=== PATIENT | female | born 1965 | race Caucasian/White ===

== ENCOUNTER 2017-06-04 12:15 | Inpatient (IN) | payer SELFPAY ==
[2017-06-04 13:17] LABS: BILIRUBIN,URINE NEGATIVE (NEG); CLARITY,URINE CLEAR; GLUCOSE,URINE NEGATIVE (NEG); NITRITE,URINE NEGATIVE (NEG); PROTEIN,URINE NEGATIVE (NEG-TRACE); UROBILINOGEN,URINE 0.2 mg/dL (0.2 mg/dL)
[2017-06-04] MEDS: ONDANSETRON PF 4 MG/2 ML VIAL. IV ×2 (13:17→13:51)
[2017-06-04] MEDS: MORPHINE SULFATE 10 MG/ML VIAL. IV (13:17)
[2017-06-04 13:22] LABS: ADD MAN DIFF? NO
[2017-06-04 13:26] LABS: BASO # 0.1 x10^3/uL (0.0-0.2); BASO % 1 % (0-3); EOS # 0.1 x10^3/uL (0.0-0.7); EOS % 1 % (0-3); HEMATOCRIT 39.1 % (36.0-47.0); HEMOGLOBIN 13.2 g/dL (12.0-15.5); LYMPH # 1.5 x10^3/uL (1.0-4.8); LYMPH % 16 % (24-48); MEAN CORPUSCULAR HEMOGLOBIN 32 pg (25-35); MEAN CORPUSCULAR HGB CONC 34 g/dL (31-37); MEAN CORPUSCULAR VOLUME 95 fL (79-100); MONO # 0.4 x10^3/uL (0.0-1.1); MONO % 5 % (0-9); NEUT # 6.8 x10^3uL (1.8-7.7); NEUT % 77 % (31-73); PLATELET COUNT 290 x10^3/uL (140-400); RED BLOOD COUNT 4.12 x10^6/uL (3.50-5.40); RED CELL DISTRIBUTION WIDTH 14.3 % (11.5-14.5); WHITE BLOOD COUNT 8.9 x10^3/uL (4.0-11.0)
[2017-06-04 13:39] LABS: ANION GAP 12 (6-14); BLOOD UREA NITROGEN 17 mg/dL (7-20); BUN/CREATININE RATIO 21 (6-20); CALCIUM 9.1 mg/dL (8.5-10.1); CARBON DIOXIDE 25 mmol/L (21-32); CHLORIDE 109 mmol/L (98-107); CREATININE 0.8 mg/dL (0.6-1.0); GFR 76.2; GLUCOSE 84 mg/dL (70-99); POTASSIUM 3.9 mmol/L (3.5-5.1); SODIUM 146 mmol/L (136-145)
[2017-06-04 13:48] LABS: COLOR,URINE STRAW
[2017-06-04 13:50] LABS: BACTERIA,URINE FEW /HPF (0-FEW); RBC,URINE 0 /HPF (0-2); SQUAMOUS EPITHELIAL CELL,UR FEW /LPF; WBC,URINE 0 /HPF (0-4)
[2017-06-04 13:53] LABS: ALBUMIN/GLOBULIN RATIO 1.1 (1.0-1.7); ALK PHOS 77 U/L (46-116); ALT (SGPT) 25 U/L (14-59); AST (SGOT) 19 U/L (15-37); LIPASE 167 U/L (73-393); TOTAL BILIRUBIN 0.4 mg/dL (0.2-1.0); TOTAL PROTEIN 7.6 g/dL (6.4-8.2)
[2017-06-04] MEDS: MORPHINE SULFATE 4 MG/ML DISP.SYRIN. IV ×4 (13:54→22:40)
[2017-06-04] MEDS: KETOROLAC 30 MG/ML INJ. IV ×2 (14:56→20:26)
[2017-06-04] MEDS: PROMETHAZINE IM 25 MG/ML VIAL IM (14:58)
[2017-06-04] MEDS: ONDANSETRON ODT 4 MG TAB.RAPDIS. PO (18:11)
[2017-06-04] MEDS ORDERED: NICOTINE 14MG PATCH. TD (20:00)
[2017-06-04] MEDS: VANCOMYCIN 125 MG/2.5 ML ORAL SOLUTION. PO (20:26)
[2017-06-04] MEDS: ACETAMINOPHEN 325 MG TABLET. PO (20:26)
[2017-06-04] MEDS: SIMETHICONE 80 MG TAB.CHEW PO (22:45)
[2017-06-05] MEDS: MORPHINE SULFATE 4 MG/ML DISP.SYRIN. IV ×7 (01:01→15:43)
[2017-06-05] MEDS: ONDANSETRON ODT 4 MG TAB.RAPDIS. PO (03:13)
[2017-06-05] MEDS: ACETAMINOPHEN 325 MG TABLET. PO (03:14)
[2017-06-05] MEDS: KETOROLAC 30 MG/ML INJ. IV (03:14)
[2017-06-05 05:40] LABS: ADD MAN DIFF? NO
[2017-06-05 05:47] LABS: BASO % 1 % (0-3); EOS # 0.2 x10^3/uL (0.0-0.7); EOS % 2 % (0-3); HEMATOCRIT 35.9 % (36.0-47.0); HEMOGLOBIN 12.1 g/dL (12.0-15.5); LYMPH # 1.1 x10^3/uL (1.0-4.8); LYMPH % 18 % (24-48); MEAN CORPUSCULAR HEMOGLOBIN 32 pg (25-35); MEAN CORPUSCULAR HGB CONC 34 g/dL (31-37); MEAN CORPUSCULAR VOLUME 96 fL (79-100); MONO # 0.5 x10^3/uL (0.0-1.1); MONO % 7 % (0-9); NEUT # 4.7 x10^3uL (1.8-7.7); NEUT % 72 % (31-73); PLATELET COUNT 245 x10^3/uL (140-400); RED BLOOD COUNT 3.75 x10^6/uL (3.50-5.40); RED CELL DISTRIBUTION WIDTH 14.6 % (11.5-14.5); WHITE BLOOD COUNT 6.5 x10^3/uL (4.0-11.0)
[2017-06-05] MEDS: CALCIUM CARBONATE 500 MG TAB.CHEW PO (06:03)
[2017-06-05] MEDS: ONDANSETRON PF 4 MG/2 ML VIAL. IV (06:03)
[2017-06-05 06:17] LABS: ALBUMIN 3.3 g/dL (3.4-5.0); ALK PHOS 107 U/L (46-116); ALT (SGPT) 152 U/L (14-59); ANION GAP 8 (6-14); AST (SGOT) 259 U/L (15-37); BLOOD UREA NITROGEN 18 mg/dL (7-20); BUN/CREATININE RATIO 23 (6-20); CALCIUM 8.5 mg/dL (8.5-10.1); CARBON DIOXIDE 27 mmol/L (21-32); CHLORIDE 108 mmol/L (98-107); CREATININE 0.8 mg/dL (0.6-1.0); GFR 76.2; GLUCOSE 88 mg/dL (70-99); POTASSIUM 4.2 mmol/L (3.5-5.1); SODIUM 143 mmol/L (136-145); TOTAL BILIRUBIN 0.5 mg/dL (0.2-1.0); TOTAL PROTEIN 6.6 g/dL (6.4-8.2)
[2017-06-05] MEDS: VANCOMYCIN 125 MG/2.5 ML ORAL SOLUTION. PO ×3 (08:04→17:21)
[2017-06-05] MEDS: DOCUSATE SODIUM 100 MG CAPSULE. PO (15:41)
[2017-06-05] MEDS: HYDROCORTISONE 10 MG TABLET PO (15:41)
[2017-06-05] MEDS: LEVOTHYROXINE 125 MCG TABLET PO (15:42)
[2017-06-05] MEDS: GABAPENTIN 300 MG CAPSULE. PO (17:20)
[2017-06-05] MEDS ORDERED: POLYETHYLENE GLYCOL 3350 17 GM PACKET. PO (21:00)
[2017-06-05] MEDS ORDERED: QUEtiapine 100 MG TABLET. PO (21:00)
[2017-06-06 05:45] LABS: HCV ANTIBODY <0.1 s/co ratio (0.0-0.9); HEP A IGM ABDY Negative (Negative); HEP B SURFACE AG Negative (Negative)
[2017-06-06] MEDS ORDERED: FLUoxetine HCL 20 MG CAPSULE PO (09:00)
== END 2017-06-05 18:08 | disposition home or self-care (01) | DRG 372 ==
LOC: ER 12:15 → 5 SOUTH 14:37
DX: A04.71 Enterocolitis due to Clostridium difficile, recurrent (principal); K50.90 Crohn's disease, unspecified, without complications; E27.1 Primary adrenocortical insufficiency; F17.210 Nicotine dependence, cigarettes, uncomplicated; K21.9 Gastro-esophageal reflux disease without esophagitis; E89.0 Postprocedural hypothyroidism; R74.0 Nonspecific elevation of levels of transaminase and lactic acid dehydrogenase [LDH]; K57.30 Diverticulosis of large intestine without perforation or abscess without bleeding; F32.9 Major depressive disorder, single episode, unspecified; Z87.440 Personal history of urinary (tract) infections; Z90.710 Acquired absence of both cervix and uterus; Z88.8 Allergy status to other drugs, medicaments and biological substances; Z91.041 Radiographic dye allergy status; Z90.49 Acquired absence of other specified parts of digestive tract
CPT/HCPCS: 36415; 74022; 74176; 80053; 80074; 81001; 83690; 85025; 96372; 96374; 96375; 96376; 99285; 99285-25; J1885; J2270; J2405; J2550; Q0162

== ENCOUNTER 2017-10-02 21:13 | Emergency (ER) | payer SELFPAY ==
[2017-10-02 22:01] LABS: ADD MAN DIFF? NO
[2017-10-02 22:02] LABS: BASO # 0.1 x10^3/uL (0.0-0.2); BASO % 1 % (0-3); EOS # 0.1 x10^3/uL (0.0-0.7); EOS % 2 % (0-3); HEMATOCRIT 35.9 % (36.0-47.0); HEMOGLOBIN 12.4 g/dL (12.0-15.5); LYMPH % 31 % (24-48); MEAN CORPUSCULAR HEMOGLOBIN 32 pg (25-35); MEAN CORPUSCULAR HGB CONC 34 g/dL (31-37); MEAN CORPUSCULAR VOLUME 93 fL (79-100); MONO # 0.5 x10^3/uL (0.0-1.1); MONO % 7 % (0-9); NEUT # 3.8 x10^3uL (1.8-7.7); NEUT % 58 % (31-73); PLATELET COUNT 289 x10^3/uL (140-400); RED BLOOD COUNT 3.86 x10^6/uL (3.50-5.40); RED CELL DISTRIBUTION WIDTH 14.7 % (11.5-14.5); WHITE BLOOD COUNT 6.6 x10^3/uL (4.0-11.0)
[2017-10-02] MEDS: MORPHINE SULFATE 10 MG/ML VIAL. IV (22:09)
[2017-10-02 22:10] LABS: ANION GAP 14 (6-14); BLOOD UREA NITROGEN 20 mg/dL (7-20); BUN/CREATININE RATIO 20 (6-20); CALCIUM 8.8 mg/dL (8.5-10.1); CARBON DIOXIDE 25 mmol/L (21-32); CHLORIDE 105 mmol/L (98-107); GFR 58.9; GLUCOSE 105 mg/dL (70-99); POTASSIUM 3.1 mmol/L (3.5-5.1); SODIUM 144 mmol/L (136-145)
[2017-10-02] MEDS: ONDANSETRON PF 4 MG/2 ML VIAL. IV ×3 (22:10→23:59)
[2017-10-02] MEDS: PANTOPRAZOLE IV PUSH 40 MG VIAL. IVP (22:10)
[2017-10-02] MEDS: IV NORMAL SALINE 1000ML BAG 1,000 ML IV (22:10)
[2017-10-02 22:12] LABS: ETHANOL 88 mg/dL (0-10)
[2017-10-02 22:16] LABS: ALBUMIN 3.6 g/dL (3.4-5.0); ALBUMIN/GLOBULIN RATIO 1.1 (1.0-1.7); ALK PHOS 84 U/L (46-116); ALT (SGPT) 37 U/L (14-59); AST (SGOT) 22 U/L (15-37); LIPASE 341 U/L (73-393); TOTAL BILIRUBIN 0.2 mg/dL (0.2-1.0)
[2017-10-02] MEDS: HALOPERIDOL LACTATE 5 MG/ML VIAL. IVP (23:49)
[2017-10-02] MEDS: KETOROLAC 30 MG/ML INJ. IV (23:49)
[2017-10-03] MEDS: POTASSIUM CHLORIDE 20 MEQ TABLET.ER. PO (00:08)
== END 2017-10-03 00:10 | disposition home or self-care (01) ==
LOC: ER 10-03 00:10
DX: E87.6 Hypokalemia (principal); K59.00 Constipation, unspecified; K50.90 Crohn's disease, unspecified, without complications; F17.200 Nicotine dependence, unspecified, uncomplicated; Z90.710 Acquired absence of both cervix and uterus; Z88.8 Allergy status to other drugs, medicaments and biological substances; Z91.041 Radiographic dye allergy status
CPT/HCPCS: 36415; 74176; 80053; 83690; 85025; 96361; 96365; 96374; 96375; 96376; 99285-25; C9113; G0480; J1630; J1885; J2270; J2405; J7030